=== PATIENT | female | born 1960 | race Caucasian/White ===

== ENCOUNTER 2024-01-25 13:04 | Emergency (ER) | payer SELFPAY ==
[~2024-01-25 13:04] MED LIST: ITRACONAZOLE100 MG; LEVOFLOXACIN500 MG; METOPROLOL TART25 MG PO; NICOTINE PATCH1 EAC5; NORCO 10-325 T1 EACH; SERTRALINE HCL50 MG PO
== END 2024-01-25 13:12 | disposition short-term general hospital (02) ==
LOC: ER 13:06
DX: R11.10 Vomiting, unspecified (principal)